=== PATIENT | female | born 1990 | race Caucasian/White ===

== ENCOUNTER 2017-06-16 13:16 | Inpatient (IN) | payer OTHER ==
[~2017-06-16] VITALS: Ht 149.9 cm; Wt 74.5 kg
[2017-06-16 13:36] VITALS: Ht 149.9 cm; Wt 74.5 kg
[2017-06-16] MEDS ORDERED: OXYTOCIN 30 UNITS/LR 500 ML IV SCH (14:00)
[2017-06-16] MEDS ORDERED: OXYTOCIN 30 UNITS/LR 500 ML IV PRN ×2 (14:00→18:00)
[2017-06-16] MEDS ORDERED: METHYLERGONOVINE 0.2 MG INJ IM PRN ×2 (14:00→18:00)
[2017-06-16] MEDS ORDERED: MISOPROSTOL 200 MCG TAB PR PRN ×2 (14:00→18:00)
[2017-06-16] MEDS ORDERED: CARBOPROST 250 MCG INJ IM PRN ×2 (14:00→18:00)
[2017-06-16] MEDS ORDERED: CEFAZOLIN 2 GM/50 ML (PMX) 50 ML IV SCH (14:00)
[2017-06-16 14:28] LABS: INR 0.92; PARTIAL THROMBOPLASTIN TIME 28.3 Sec (25.0-35.0); PROTIME 12.4 Sec (12.2-14.2)
[2017-06-16 14:30] LABS: BASOPHILS % 0.5 % (0.0-2.0); EOSINOPHILS % 0.3 % (0.0-7.0); HEMATOCRIT 33.2 % (37.0-47.0); HEMOGLOBIN 11.3 g/dl (12.0-16.0); LYMPHOCYTES % 22.9 % (15.0-51.0); MEAN CORPUSCULAR VOLUME 85.3 fl (82.0-101.0); MONOCYTE # 0.9 10^3/ul (0.3-0.9); MONOCYTES % 10.8 % (0.0-11.0); PLATELET COUNT 289 10^3/UL (140-415); RED BLOOD COUNT 3.89 10^6/ul (4.20-5.40); RED CELL DISTRIBUTION WIDTH 13.9 % (11.5-14.5); WHITE BLOOD COUNT 8.6 10^3/ul (4.8-10.8)
[2017-06-16] MEDS ORDERED: FENTAnyl 50 MCG/ML VIAL ONE (15:24)
[2017-06-16] MEDS ORDERED: morphine SULFATE/PF (10 MG/10 ML) INJ ONE (15:24)
[2017-06-16] MEDS ORDERED: ONDANSETRON 4 MG INJ ONE (15:30)
[2017-06-16] MEDS ORDERED: DEXAMETHASONE 4 MG/ML 1 ML INJ ONE (15:30)
[2017-06-16] MEDS ORDERED: PHENYLephrine (100 MCG/ML) 5ML SYG ONE (15:31)
[2017-06-16] MEDS: LACTATED RINGER'S 1,000 ML IV SCH ×3 (15:45→21:33)
[2017-06-16] MEDS ORDERED: HYDROmorphONE 1 MG/ML SYG IV PRN ×2 (16:00)
[2017-06-16] MEDS ORDERED: ONDANSETRON 4 MG INJ IV PRN (16:00)
[2017-06-16] MEDS ORDERED: NALOXONE (0.4 MG/ML) INJ IV PRN (16:00)
[2017-06-16] MEDS ORDERED: ZOLPIDEM 5 MG TAB PO PRN (16:00)
[2017-06-16] MEDS ORDERED: MIDAZOLAM 1 MG/ML 2 ML INJ ONE (16:12)
--- NOTE | 2017-06-16 16:55 | PREOPHP ---
DATE OF ADMISSION: 06/16/2017 HISTORY OF PRESENT ILLNESS: This is a 26 years old lady, 8, para 4, with 1 spontaneous and 2 therapeutic had EDC of 06/23/2017 at 39 weeks admitted for repeat C- section and bilateral tubal ligation. The procedures were explained to the patient and she understood everything totally. The risks, benefits, and alternatives was discussed with her as well. PAST PERSONAL HISTORY: No history of diabetes, TB, asthma and no allergies. SOCIAL HISTORY: The patient does not smoke. She does not drink. She does not take any drugs, except her iron and vitamins. PATIENT SITTER HISTORY: She had menarche at the age of 12, every 28 days interval, 3-4 days duration and moderate in amount. She is 8, para 4. First delivery 2007, second 2009, third 2010, fourth 2012, all by . FAMILY HISTORY: Noncontributory, except her grandmother on mother's side had diabetes. REVIEW OF SYSTEMS: CARDIOVASCULAR: No chest pain. LUNGS: No cough. GASTROINTESTINAL: No diarrhea. No vomiting. GENITOURINARY: No dysuria. PHYSICAL EXAMINATION: GENERAL APPEARANCE: Reveals a conscious, coherent lady, and in not acute distress. VITAL SIGNS: Her blood pressure 120/80, pulse rate 80 per minute, and respirations 16 per minute. BREASTS: Within normal limits. ABDOMEN: Soft. No organomegaly. Fundic height 38 cm. heart tones 140 per minute. PELVIC: Pelvic exam revealed the cervix to be 2 cm dilated, 100 percent effaced, station floating in cephalic presentation with the bag of water intact. EXTREMITIES: No pedal edema. DIAGNOSES: 1. 39 weeks intrauterine in labor, and multiparity. 2. Patient desires sterilization. PLAN: The patient was planned to have a repeat plus tubal ligation. As mentioned above the procedures were explained to the patient and she understood everything totally. The risks, benefits, and alternatives discussed with her as well. Dictated By: Estefani Mercado MD /[email or web address]/velia /Document#: [id number]
[2017-06-16] MEDS ORDERED: METHYLERGONOVINE 0.2 MG TAB PO PRN (18:00)
[2017-06-16] MEDS ORDERED: LANOLIN 7 GM TUBE TOP PRN (18:00)
[2017-06-16] MEDS ORDERED: CEFAZOLIN 1 GM/50 ML (PMX) 50 ML IV ONE (18:00)
[2017-06-16] MEDS: KETOROLAC 30 MG INJ IV PRN (18:26)
[2017-06-16] MEDS: DIPHENHYDRAMINE 50 MG INJ IV PRN (18:51)
[2017-06-16 19:30] VITALS: BP 95/56; PULSE 77; RESP 18
[2017-06-16 19:45] VITALS: BP 101/64; PULSE 78; RESP 18
[2017-06-16 20:00] VITALS: BP 105/60; PULSE 76; RESP 18
[2017-06-16 20:15] VITALS: BP 99/55; PULSE 78; RESP 18
[2017-06-16] MEDS: OXYTOCIN 30 UNITS/LR 500 ML IV SCH ×2 (21:23→21:33)
[2017-06-16 21:50] VITALS: BP 97/52; PULSE 70; RESP 18
[2017-06-16] MEDS: SENNA/DOCUSATE NA (8.6MG/50MG) TAB PO SCH (22:13)
[2017-06-17] MEDS: LACTATED RINGER'S 1,000 ML IV SCH ×6 (01:44→21:33)
[2017-06-17] MEDS: DIPHENHYDRAMINE 50 MG INJ IV PRN (02:21)
[2017-06-17 04:00] VITALS: BP 98/56; PULSE 77; RESP 18
[2017-06-17] MEDS: KETOROLAC 30 MG INJ IV PRN (06:01)
[2017-06-17 08:00] VITALS: BP 86/52; PULSE 63; RESP 16
[2017-06-17] MEDS: SENNA/DOCUSATE NA (8.6MG/50MG) TAB PO SCH ×2 (09:23→22:05)
[2017-06-17 09:43] LABS: BASOPHILS % 0.2 % (0.0-2.0); EOSINOPHILS % 0.2 % (0.0-7.0); HEMATOCRIT 21.1 % (37.0-47.0); LYMPHOCYTES # 2.3 10^3/ul (0.8-2.9); LYMPHOCYTES % 18.2 % (15.0-51.0); MEAN CORPUSCULAR HEMOGLOBIN 28.6 pg (29.0-33.0); MEAN CORPUSCULAR HGB CONC 33.2 g/dl (32.0-37.0); MEAN CORPUSCULAR VOLUME 86.1 fl (82.0-101.0); MEAN PLATELET VOLUME 9.6 fl (7.4-10.4); MONOCYTE # 1.4 10^3/ul (0.3-0.9); MONOCYTES % 10.7 % (0.0-11.0); NEUTROPHILS % 69.7 % (39.0-77.0); PLATELET COUNT 208 10^3/UL (140-415); RED BLOOD COUNT 2.45 10^6/ul (4.20-5.40); RED CELL DISTRIBUTION WIDTH 14.3 % (11.5-14.5); WHITE BLOOD COUNT 12.6 10^3/ul (4.8-10.8)
[2017-06-17 10:01] LABS: CALCIUM 8.1 mg/dl (8.4-10.2); CREATININE 0.47 mg/dl (0.44-1.00); POTASSIUM 3.9 mmol/L (3.5-5.1)
[2017-06-17 12:00] VITALS: BP 91/54; PULSE 78; RESP 18
[2017-06-17] MEDS ORDERED: SOD CHLORIDE 0.9% 1,000 ML IV ONE (12:00)
[2017-06-17 16:00] VITALS: BP 88/51; PULSE 76; RESP 17
[2017-06-17] MEDS: HYDROCODONE/APAP (5/325) TAB PO PRN (17:09)
[2017-06-17] MEDS: IBUPROFEN 800 MG TAB PO SCH (22:04)
[2017-06-17 22:59] LABS: BASOPHILS % 0.3 % (0.0-2.0); EOSINOPHILS % 0.1 % (0.0-7.0); HEMATOCRIT 27.1 % (37.0-47.0); LYMPHOCYTES # 2.2 10^3/ul (0.8-2.9); LYMPHOCYTES % 20.2 % (15.0-51.0); MEAN CORPUSCULAR HEMOGLOBIN 28.7 pg (29.0-33.0); MEAN CORPUSCULAR HGB CONC 33.2 g/dl (32.0-37.0); MEAN CORPUSCULAR VOLUME 86.3 fl (82.0-101.0); MEAN PLATELET VOLUME 9.7 fl (7.4-10.4); MONOCYTE # 1.1 10^3/ul (0.3-0.9); MONOCYTES % 9.9 % (0.0-11.0); NEUTROPHILS % 68.8 % (39.0-77.0); PLATELET COUNT 232 10^3/UL (140-415); RED BLOOD COUNT 3.14 10^6/ul (4.20-5.40); RED CELL DISTRIBUTION WIDTH 14.5 % (11.5-14.5); WHITE BLOOD COUNT 10.9 10^3/ul (4.8-10.8)
[2017-06-18] MEDS: LACTATED RINGER'S 1,000 ML IV SCH ×6 (01:33→21:33)
[2017-06-18 04:00] VITALS: BP 95/55; PULSE 77; RESP 18
[2017-06-18] MEDS: HYDROCODONE/APAP (5/325) TAB PO PRN ×3 (04:03→22:19)
[2017-06-18] MEDS: IBUPROFEN 800 MG TAB PO SCH ×3 (06:00→22:18)
[2017-06-18 08:15] VITALS: BP 91/52; PULSE 72; RESP 16
[2017-06-18] MEDS: SENNA/DOCUSATE NA (8.6MG/50MG) TAB PO SCH ×2 (10:33→20:42)
[2017-06-18 12:28] LABS: BASOPHILS % 0.3 % (0.0-2.0); EOSINOPHILS % 0.3 % (0.0-7.0); HEMATOCRIT 28.7 % (37.0-47.0); HEMOGLOBIN 9.3 g/dl (12.0-16.0); LYMPHOCYTES # 1.7 10^3/ul (0.8-2.9); LYMPHOCYTES % 18.2 % (15.0-51.0); MEAN CORPUSCULAR HEMOGLOBIN 28.4 pg (29.0-33.0); MEAN CORPUSCULAR HGB CONC 32.4 g/dl (32.0-37.0); MEAN CORPUSCULAR VOLUME 87.5 fl (82.0-101.0); MEAN PLATELET VOLUME 9.6 fl (7.4-10.4); MONOCYTE # 0.9 10^3/ul (0.3-0.9); MONOCYTES % 9.9 % (0.0-11.0); NEUTROPHILS % 70.1 % (39.0-77.0); PLATELET COUNT 247 10^3/UL (140-415); RED BLOOD COUNT 3.28 10^6/ul (4.20-5.40); RED CELL DISTRIBUTION WIDTH 14.6 % (11.5-14.5); WHITE BLOOD COUNT 9.2 10^3/ul (4.8-10.8)
[2017-06-18 15:48] VITALS: BP 103/62; PULSE 77; RESP 18
[2017-06-18] MEDS ORDERED: MAGNESIUM HYDROXIDE 30ML CUP PO ONE (17:00)
[2017-06-18] MEDS ORDERED: BISACODYL 10 MG SUPP PR ONE (17:00)
[2017-06-18 20:00] VITALS: BP 97/55; PULSE 77; RESP 20
[2017-06-18] MEDS: FERROUS SULFATE (EC) 325 MG TAB PO SCH (20:44)
[2017-06-19 04:00] VITALS: BP 100/57; PULSE 77; RESP 20
[2017-06-19] MEDS: HYDROCODONE/APAP (5/325) TAB PO PRN ×2 (04:47→09:38)
[2017-06-19] MEDS: LACTATED RINGER'S 1,000 ML IV SCH ×5 (05:33→14:28)
[2017-06-19] MEDS: IBUPROFEN 800 MG TAB PO SCH ×2 (06:02→13:31)
[2017-06-19] MEDS ORDERED: DIPHTH/TET/ACEL PERTUSS (ADULT) 0.5 ML VIAL IM* ONE (09:00)
[2017-06-19] MEDS ORDERED: MEASLES,MUMPS,RUBELLA VACCINE INJ SC* ONE (09:00)
[2017-06-19] MEDS: FERROUS SULFATE (EC) 325 MG TAB PO SCH ×2 (09:36→13:30)
[2017-06-19] MEDS: SENNA/DOCUSATE NA (8.6MG/50MG) TAB PO SCH (09:38)
[2017-06-19 09:40] VITALS: BP 93/57; PULSE 65; RESP 18
--- NOTE | 2017-06-20 05:54 | OPR ---
DATE OF OPERATION: 06/16/2017 PREOPERATIVE DIAGNOSIS: A 39 weeks intrauterine in labor, the patient desires sterilization, previous section x4. POSTOPERATIVE DIAGNOSIS: A 39 weeks intrauterine in labor, the patient desires sterilization, previous section x4, plus severe pelvic and abdominal adhesions. OPERATION PERFORMED: Repeat low transverse section plus bilateral tubal ligation and lysis of severe pelvic and abdominal adhesions. SURGEON: Estefani Mercado MD SEED ANALYST: Sylvia Olivas MD ANESTHESIA: Spinal. ESTIMATED BLOOD LOSS: About 1000 mL. OPERATIVE TECHNIQUE: Under spinal anesthesia, the patient was prepped and draped in the usual fashion for abdominal surgery. After checking for the effect of the anesthesia, the previous Pfannenstiel scar was excised. A 14-cm skin incision was performed. The incision was carried from the skin up to the fascia. Upon opening the skin up to the fascia, small blood vessels were noted to be oozing and these were all cauterized. The fascia was opened transversely followed by splitting the muscles vertically and the peritoneum vertically. Upon opening the abdominal cavity, the fascia was opened transversely. Upon opening the fascia, the uterus was also opened and the bag of water was bulging. Then the incision was carried sidewise with the aid of my 2 fingers and then my left hand was inserted in the lower segment of the uterus and the bag of water was ruptured. Clear fluid was noted. The baby's head was delivered and baby's airways were quickly suctioned with amniotic fluid. The anterior of the baby's cord was clamped after 30 seconds and the placenta was delivered manually and completely. The uterus was noted to be attached all over the anterior parietal peritoneum and could not be exteriorized due to thick band of adhesions and care was done in lysing all of these adhesions to exteriorize the uterus. All these adhesions were lysed by sharp and blunt dissection. Difficult lysis of adhesions was done, as the adhesions were very thick. Then after carefully lysing of the adhesions, the uterus was pulled out from the pelvic cavity. Then the uterus was cleansed with wet lap sponges to make sure that no membranes were left behind. After correct sponge count and after lysing the adhesions of the lower uterine segment to the anterior abdominal wall, then the uterus was closed in the usual fashion using number 1 chromic for the first layer, continuous locking suture was used, followed by number 1 chromic for the second layer, imbricating sutures were used. Oozing was noted at the site of the incision and all this oozing was controlled with figure-of-8 suture with 2-0 chromic. All the oozing was controlled by a figure-of-8 suture with 0-chromic. After checking for any bleeders, in which there were none, then the right tube was grasped from the center at an avascular area and 1- cm of the tube was stick-tied at the proximal and distal portion with 2-0 silk and then stick-tied with 2-0 chromic above the first silk tie and another free tie with 2-0 chromic above the second tie. The right tube was cut and the cut ends were cauterized. The same thing was done on the left side. Good 1 cm of tube was excised. Both fimbria were identified. Then after checking for any bleeders, in which there were none, the uterus was put back into the pelvic cavity. Once again, the uterine incision was checked for any bleeders and there was no bleeding noted. After correct sponge count, needle count, and instrument count was confirmed by the quality systems technician and stopperer assembler, the abdomen was closed by closing the peritoneum and the muscles together using 0-Vicryl for the fascia, 0-Vicryl continuous stitch was used, followed by a few figure-of-8 sutures. For the subcutaneous tissue, it was closed with 3-0 Vicryl and the skin was closed with 3-0 Vicryl, subcuticular suture was used. The patient tolerated the procedure well. Vital signs were stable during and after the delivery. Also after the baby was born and while closing the uterus, the uterus was noted to be hypotonic. Pitocin was transfused and Methergine was given. She delivered a healthy baby girl at 16:27 p.m., score of 9 at one minute and 9 at five minutes, weighing 7 pounds, 15 ounces, and 19 inches long. Dictated By: Estefani Mercado MD /[email or web address]/radha /Document#: [id number]
--- NOTE | 2017-07-05 05:49 | DS ---
DATE OF ADMISSION: 06/16/2017 DATE OF DISCHARGE: 06/19/2017 REASON FOR ADMISSION: This is a 26 years old lady, 8, para 4, with 1 spontaneous and 2 therapeutic abortions, EDC of June 23, 2017, at 39 weeks , admitted for repeat and tubal ligation. HISTORY OF PRESENT ILLNESS: See dictated History and Physical. PHYSICAL EXAMINATION: See dictated History and Physical. ADMITTING DIAGNOSIS: 39 weeks' intrauterine and multiparity and patient desires sterilization. She underwent a repeat low-transverse section plus bilateral tubal ligation, section and lysis of severe pelvic and abdominal adhesions. She tolerated the procedure well except she had atony. She had a good course. HOSPITAL COURSE: The diet was advanced from liquid to general diet. She was given ferrous sulfate 3 times a day. She was discharged home in good, stable condition. She was told to continue to take iron and vitamins at home. She was given prescriptions for pain. She delivered a healthy baby girl at 16:27, Apgars 9, 9, weighing 7 pounds, 15 ounces. FINAL DIAGNOSES: 1. 39 weeks' intrauterine , delivered. 2. Previous section. 3. Severe pelvic and abdominal adhesions. 4. atony. 5. Multiparity. Dictated By: Estefani Mercado MD /[email or web address] /Document#: [id number] MIKA
== END 2017-06-19 17:37 | disposition home or self-care (01) | DRG 766 ==
LOC: L-D 13:16 → PP1 21:42
PROVIDERS: ADMIT Obstetrics & Gynecology; ATTEND Obstetrics & Gynecology
PROC: 3E033VJ Introduction of Other Hormone into Peripheral Vein, Percutaneous Approach (ICD-10-PCS; 2017-06-16)
PROC: 10D00Z1 Extraction of Products of Conception, Low, Open Approach (ICD-10-PCS; principal; 2017-06-16 14:00)
DX: O34.211 Maternal care for low transverse scar from previous cesarean delivery (principal); Z37.0 Single live birth; Z3A.39 39 weeks gestation of pregnancy
CPT/HCPCS: 36430; 80048; 85025; 85610; 85730; 86592; 86850; 86900; 86901; 86920; 88302; 88304; 90715; 94760; 99464; J0690; J1100; J1170; J1200; J1885; J2250; J2274; J2370; J2405; J2590; J3010; J7030; J7120; P9016; P9059